=== PATIENT | male | born 1965 | race Caucasian/White ===

== ENCOUNTER 2017-11-05 21:04 | Inpatient (IN) | payer OTHER ==
--- NOTE | 2017-11-05 21:29 | ED ---
General Adult HPI - General Chief complaint: Chest Pain Stated complaint: chest pain Time Seen by Provider: 11/05/17 21:15 Source: patient, RN notes reviewed, old records reviewed Mode of arrival: ambulatory Limitations: no limitations - History of Present Illness Initial comments: 51-year-old male presents for evaluation of left-sided chest pain. Patient has had intermittent chest pain over the past 2 weeks. Describes it as left-sided burning in nature. Denies any exertional component to this chest pain. He does state that he has pain in his left arm as well as becomes diaphoretic with these episodes. They last approximately 15-20 minutes. He is having approximately one daily. No known history of CAD. He is a smoker. Not currently on any medications chronically. Patient has no pain at the time my evaluation. - Related Data Home Medications Medication Instructions Recorded Confirmed Aspirin 325 mg PO DAILY 11/05/17 11/05/17 Allergies Allergy/AdvReac Type Severity Reaction Status Date / Time No Known Allergies Allergy Verified 11/05/17 21:12 Review of Systems ROS Statement: Those systems with pertinent positive or pertinent negative responses have been documented in the HPI. ROS Other: All systems not noted in ROS Statement are negative. Past Medical History Past Medical History: No Reported History History of Any Multi-Drug Resistant Organisms: None Reported Past Surgical History: No Surgical Hx Reported Past Psychological History: No Psychological Hx Reported Smoking Status: Current every day smoker Past Alcohol Use History: Occasional Past Drug Use History: Marijuana General Exam Limitations: no limitations General appearance: alert Head exam: Present: atraumatic, normocephalic Eye exam: Present: normal appearance, PERRL ENT exam: Present: normal exam Neck exam: Present: normal inspection. Absent: tenderness, meningismus Respiratory exam: Present: normal lung sounds bilaterally. Absent: respiratory distress, wheezes Cardiovascular Exam: Present: regular rate, normal rhythm GI/Abdominal exam: Present: soft. Absent: distended, tenderness, guarding, rebound Extremities exam: Present: normal inspection, normal capillary refill. Absent: pedal edema Neurological exam: Present: alert, oriented X3, CN II-XII intact. Absent: motor sensory deficit Psychiatric exam: Present: normal affect, normal mood Skin exam: Present: warm, dry, intact. Absent: cyanosis, diaphoretic Course Vital Signs 11/05/17 11/05/17 11/05/17 21:09 21:29 22:22 Temperature 98.2 F Pulse Rate 93 86 Pulse Rate [ 91 Literacy Coordinator ] Respiratory 20 18 Rate Blood Pressure 196/106 175/89 O2 Sat by Pulse 99 97 Oximetry 11/05/17 23:16 Temperature Pulse Rate 81 Pulse Rate [ Literacy Coordinator ] Respiratory 18 Rate Blood Pressure 175/89 O2 Sat by Pulse 97 Oximetry - Reevaluation(s) Reevaluation #1: 11/05/17 23:37 Patient remains chest pain-free while in the emergency department. EKG Findings - EKG Comments: EKG Findings:: EKG: Normal sinus rhythm, rate of 96, CA interval 138, QRS duration 84, QTC 424, QT 336, there is biphasic T wave in V3, no ST segment elevation, T-wave inversion in lead 3 with Q-wave. Medical Decision Making - Medical Decision Making 51-year-old male with chief complaint of chest pain. History is concerning for unstable angina. EKG does show nonspecific changes concerning for ischemia. Chest x-ray negative for acute cardiopulmonary disease. Normal CBC, normal CMP , troponin is 0.017 which is indeterminate. D-dimer is positive and for this reason CT angiography is obtained which is negative for pulmonary embolism. There is some paratracheal lymphadenopathy. Given the patient's history he is started on heparin and aspirin. He will be admitted for serial cardiac enzymes and cardiology consultation. He will be admitted to telemetry. Diagnosis: unstable angina. - Lab Data Result diagrams: 11/05/17 21:37 11/05/17 21:37 Lab Results 11/05/17 11/05/17 11/05/17 Range/Units 21:37 21:37 21:37 WBC 7.8 (3.8-10.6) k/uL RBC 4.45 (4.30-5.90) m/uL Hgb 14.4 (13.0-17.5) gm/dL Hct 42.3 (39.0-53.0) % MCV 95.1 (80.0-100.0) fL MCH 32.4 (25.0-35.0) pg MCHC 34.0 (31.0-37.0) g/dL RDW 12.7 (11.5-15.5) % Plt Count 141 L (150-450) k/uL Neutrophils % 64 % Lymphocytes % 24 % Monocytes % 6 % Eosinophils % 4 % Basophils % 1 % Neutrophils # 4.9 (1.3-7.7) k/uL Lymphocytes # 1.8 (1.0-4.8) k/uL Monocytes # 0.4 (0-1.0) k/uL Eosinophils # 0.3 (0-0.7) k/uL Basophils # 0.1 (0-0.2) k/uL PT (9.0-12.0) sec INR (<1.2) APTT (22.0-30.0) sec D-Dimer (<0.60) mg/L FEU Sodium 139 (137-145) mmol/L Potassium 4.4 (3.5-5.1) mmol/L Chloride 109 H (98-107) mmol/L Carbon Dioxide 24 (22-30) mmol/L Anion Gap 6 mmol/L BUN 18 (9-20) mg/dL Creatinine 0.60 L (0.66-1.25) mg/dL Est GFR (CKD-EPI)AfAm >90 (>60 ml/min/1.73 sqM) Est GFR (CKD-EPI)NonAf >90 (>60 ml/min/1.73 sqM) Glucose 105 H (74-99) mg/dL Calcium 9.2 (8.4-10.2) mg/dL Magnesium 2.0 (1.6-2.3) mg/dL Total Bilirubin 0.2 (0.2-1.3) mg/dL AST 29 (17-59) U/L ALT 52 (21-72) U/L Alkaline Phosphatase 55 (38-126) U/L Total Creatine Kinase 238 H (55-170) U/L CK-MB (CK-2) 3.5 H* (0.0-2.4) ng/mL CK-MB (CK-2) Rel Index 1.5 Troponin I 0.017 (0.000-0.034) ng/mL NT-Pro-B Natriuret Pep pg/mL Total Protein 6.5 (6.3-8.2) g/dL Albumin 4.1 (3.5-5.0) g/dL Lipase 101 (23-300) U/L 11/05/17 11/05/17 Range/Units 21:37 21:37 WBC (3.8-10.6) k/uL RBC (4.30-5.90) m/uL Hgb (13.0-17.5) gm/dL Hct (39.0-53.0) % MCV (80.0-100.0) fL MCH (25.0-35.0) pg MCHC (31.0-37.0) g/dL RDW (11.5-15.5) % Plt Count (150-450) k/uL Neutrophils % % Lymphocytes % % Monocytes % % Eosinophils % % Basophils % % Neutrophils # (1.3-7.7) k/uL Lymphocytes # (1.0-4.8) k/uL Monocytes # (0-1.0) k/uL Eosinophils # (0-0.7) k/uL Basophils # (0-0.2) k/uL PT 9.4 (9.0-12.0) sec INR 0.9 (<1.2) APTT 28.2 (22.0-30.0) sec D-Dimer 0.66 H (<0.60) mg/L FEU Sodium (137-145) mmol/L Potassium (3.5-5.1) mmol/L Chloride (98-107) mmol/L Carbon Dioxide (22-30) mmol/L Anion Gap mmol/L BUN (9-20) mg/dL Creatinine (0.66-1.25) mg/dL Est GFR (CKD-EPI)AfAm (>60 ml/min/1.73 sqM) Est GFR (CKD-EPI)NonAf (>60 ml/min/1.73 sqM) Glucose (74-99) mg/dL Calcium (8.4-10.2) mg/dL Magnesium (1.6-2.3) mg/dL Total Bilirubin (0.2-1.3) mg/dL AST (17-59) U/L ALT (21-72) U/L Alkaline Phosphatase (38-126) U/L Total Creatine Kinase (55-170) U/L CK-MB (CK-2) (0.0-2.4) ng/mL CK-MB (CK-2) Rel Index Troponin I (0.000-0.034) ng/mL NT-Pro-B Natriuret Pep 153 pg/mL Total Protein (6.3-8.2) g/dL Albumin (3.5-5.0) g/dL Lipase (23-300) U/L Critical Care Time Critical Care Time: Yes Total Critical Care Time: 35 Disposition Clinical Impression: Unstable angina pectoris Disposition: ADMITTED IP TO THIS [facility] Condition: Stable Is patient prescribed a controlled substance at d/c from ED?: No Referrals: None,Stated [Primary Care Provider] - 1-2 days Decision to Admit Reason: Admit from EC Decision Date: 11/05/17 Decision Time: 23:40
--- NOTE | 2017-11-05 21:52 | XR ---
EXAMINATION TYPE: XR chest 2V DATE OF EXAM: 11/05/2017 COMPARISON: NONE HISTORY: Chest pain and dyspnea TECHNIQUE: Frontal and lateral views of the chest are obtained. FINDINGS: There is no focal air space opacity, pleural effusion, or pneumothorax seen. The cardiac silhouette size is within normal limits. The osseous structures are intact. IMPRESSION: No acute cardiopulmonary process.
[2017-11-05 21:53] LABS: Basophils # (A) 0.1 k/uL (0-0.2); Basophils % (A) 1 %; Eosinophils # (A) 0.3 k/uL (0-0.7); Eosinophils % (A) 4 %; HCT 42.3 % (39.0-53.0); HGB 14.4 gm/dL (13.0-17.5); Lymphocytes # (A) 1.8 k/uL (1.0-4.8); Lymphocytes % (A) 24 %; MCH 32.4 pg (25.0-35.0); MCV 95.1 fL (80.0-100.0); Mean Platelet Volume 7.6; Monocytes # (A) 0.4 k/uL (0-1.0); Monocytes % (A) 6 %; Neutrophils # (A) 4.9 k/uL (1.3-7.7); Neutrophils % (A) 64 %; Platelet Count 141 k/uL (150-450); RBC 4.45 m/uL (4.30-5.90); RDW 12.7 % (11.5-15.5); WBC 7.8 k/uL (3.8-10.6)
[2017-11-05 22:07] LABS: INR 0.9 (<1.2); Partial Thromboplastin Time 28.2 sec (22.0-30.0); Prothrombin Time 9.4 sec (9.0-12.0)
[2017-11-05 22:09] LABS: ALT 52 U/L (21-72); AST 29 U/L (17-59); Albumin 4.1 g/dL (3.5-5.0); Alkaline Phosphatase 55 U/L (38-126); Anion Gap 6 mmol/L; Blood Urea Nitrogen 18 mg/dL (9-20); Calcium 9.2 mg/dL (8.4-10.2); Carbon Dioxide 24 mmol/L (22-30); Chloride 109 mmol/L (98-107); Glucose 105 mg/dL (74-99); Lipase 101 U/L (23-300); Potassium 4.4 mmol/L (3.5-5.1); Sodium 139 mmol/L (137-145); Total Bilirubin 0.2 mg/dL (0.2-1.3); Total Protein 6.5 g/dL (6.3-8.2)
[2017-11-05 22:36] LABS: Troponin I 0.017 ng/mL (0.000-0.034)
[2017-11-05 22:40] LABS: D-Dimer 0.66 mg/L FEU (<0.60)
[2017-11-05 22:44] LABS: Creatine Kinase MB 3.5 ng/mL (0.0-2.4)
[2017-11-05] MEDS ORDERED: ASPIRIN 325 MG TAB PO STA (22:48)
--- NOTE | 2017-11-05 23:32 | CT ---
EXAMINATION TYPE: CT angio chest DATE OF EXAM: 11/05/2017 11:18 PM COMPARISON: None HISTORY: SOB CT DLP: 461 mGycm Automated exposure control for dose reduction was used. CONTRAST: CTA scan of the thorax is performed with IV Contrast, patient injected with 85 mL of Isovue 370, pulm onary embolism protocol. There are 3-D post processed images.. FINDINGS: There is minimal subsegmental atelectasis at the lung bases. There is no pleural effusion or pneumoth orax. The lungs are clear of consolidation. Thoracic aorta appears normal. There is no evidence of aneurysm or dissection. There is normal contra st opacification of the pulmonary arteries. There are no filling defects. There are a few mediastinal paratracheal lymph nodes. The largest measures 17 mm. There are no hilar masses. The bony thorax is intact. There is mild spurring in the thoracic spine. IMPRESSION: MILD SUBSEGMENTAL ATELECTASIS AT THE LUNG BASES. NO EVIDENCE OF PULMONARY EMBOLISM. NONSPECIFIC MEDIA STINAL ParaTRACHEAL LYMPH NODE.
[2017-11-05] MEDS ORDERED: NALOXONE 0.4 MG/ML 1 ML VIAL IV PRN (23:35)
[2017-11-05] MEDS ORDERED: MORPHINE SULFATE 4 MG/ML SYRINGE IV PRN (23:35)
[2017-11-05] MEDS ORDERED: HEPARIN SODIUM,PORCINE 5,000 UNIT/ML 1 ML VIAL IV PRN (23:35)
[2017-11-05] MEDS ORDERED: HEPARIN SODIUM,PORCINE 5,000 UNIT/ML 1 ML VIAL IV ONE (23:35)
[2017-11-05] MEDS ORDERED: METOPROLOL TARTRATE 25 MG TAB PO STA (23:37)
[2017-11-05] MEDS: HEPARIN SOD,PORK IN 0.45% NACL 25,000 UNIT in 0.45% NACL 1 500ML.BAG IV SCH (23:54)
[2017-11-05] MEDS: SODIUM CHLORIDE 0.9% 1,000 ML IV SCH (23:55)
[2017-11-06 05:09] LABS: Troponin I 0.031 ng/mL (0.000-0.034)
[2017-11-06 05:34] LABS: Creatine Kinase MB 3.1 ng/mL (0.0-2.4)
[2017-11-06 06:21] LABS: Basophils # (A) 0.1 k/uL (0-0.2); Basophils % (A) 1 %; Eosinophils # (A) 0.3 k/uL (0-0.7); Eosinophils % (A) 5 %; HCT 40.7 % (39.0-53.0); HGB 13.4 gm/dL (13.0-17.5); Lymphocytes % (A) 31 %; MCH 31.6 pg (25.0-35.0); MCV 95.8 fL (80.0-100.0); Mean Platelet Volume 7.6; Monocytes # (A) 0.4 k/uL (0-1.0); Monocytes % (A) 6 %; Neutrophils # (A) 3.6 k/uL (1.3-7.7); Neutrophils % (A) 56 %; Platelet Count 127 k/uL (150-450); RBC 4.25 m/uL (4.30-5.90); RDW 12.7 % (11.5-15.5); WBC 6.4 k/uL (3.8-10.6)
[2017-11-06] MEDS: ASPIRIN 325 MG TAB PO SCH (08:12)
--- NOTE | 2017-11-06 08:56 | P.CRDCN ---
History of Present Illness Consult date: 11/06/17 Requesting physician: Rob Amador Consult reason: chest pain Chief complaint: Chest pain History of present illness: This is a pleasant 51-year-old gentleman with no prior documented history of hypertension, no diabetes, no hyperlipidemia, he does smoke a pack of cigarettes per day, and drinks beer a few times a week, 10 or more at a time. No family history of premature coronary artery disease. He does not follow regularly with the physician. He presents to the hospital on this occasion with symptoms of chest discomfort. According to the patient for the past 2 weeks she's been experiencing symptoms which originally started in his upper abdominal area he described it as a heavy feeling, burning sensation almost like heartburn. Over the past couple of days, the symptoms have been more so in the upper chest region, described as a burning sensation with pressure and heaviness, he becomes very diaphoretic. He also feels discomfort in his left shoulder and arm area when this occurs. Symptoms occur with or without rest, most of the time she states it seems to be when he is in bed. His EKG on arrival here shows a normal sinus rhythm with nonspecific ST-T wave changes noted. No morning EKG performed. Chest x-ray did not reveal any acute cardiopulmonary process. CTA of the chest revealed mild subsegmental atelectasis at the lung bases, no evidence of pulmonary embolism, nonspecific mediastinal peritracheal lymph node noted. Blood pressure on arrival to the emergency room 196/106 with a heart rate in the 90s, 99% on room air. Blood pressure this morning 180/90 with a heart rate in the 70s, 98% on room air. White blood cell count 6.4, hemoglobin 13.4, platelet count 127. D-dimer 0.6. Sodium 139, potassium 4.4, BUN 18, creatinine 0.6, magnesium 2.1. CK 238 and 176, MB 3.5 and 3.1, troponin 0.017, 0.031. BNP normal. The time of my examination this morning patient is currently chest pain-free. He is currently on IV heparin along with aspirin, he received a one-time dose of Lopressor in the emergency room. Past Medical History Past Medical History: No Reported History History of Any Multi-Drug Resistant Organisms: None Reported Past Surgical History: No Surgical Hx Reported Past Anesthesia/Blood Transfusion Reactions: No Reported Reaction Past Psychological History: No Psychological Hx Reported Smoking Status: Current every day smoker Past Alcohol Use History: Occasional Past Drug Use History: Marijuana - Past Family History Father Family Medical History: Congestive Heart Failure (CHF), CVA/TIA, Myocardial Infarction (CO), Vascular Disorder Mother Family Medical History: Diabetes Mellitus Medications and Allergies Home Medications Medication Instructions Recorded Confirmed Type Aspirin 325 mg PO DAILY 11/05/17 11/05/17 History Allergies Allergy/AdvReac Type Severity Reaction Status Date / Time No Known Allergies Allergy Verified 11/05/17 21:12 Physical Exam Vitals: Vital Signs Temp Pulse Pulse Resp BP BP Pulse Ox 11/06/17 08:00 97.6 F 75 16 180/94 98 11/06/17 04:00 97.5 F L 67 15 167/100 96 11/06/17 00:41 97.6 F 74 15 180/103 97 11/06/17 00:28 97.8 F 74 18 184/99 99 11/05/17 23:16 81 18 175/89 97 11/05/17 22:22 86 18 175/89 97 11/05/17 21:29 91 11/05/17 21:09 98.2 F 93 20 196/106 99 Intake and Output 11/05/17 11/06/17 11/06/17 22:59 06:59 14:59 Intake Total 120 144.667 Balance 120 144.667 Intake: Intake, IV Titration 120 144.667 Amount Heparin Sod,Pork in 0.45% 144.667 NaCl 25,000 unit In 0.45 % NaCl 1 500ml.bag @ 20 mls/hr IV .Q24H [facility] Rx#: [id number] Sodium Chloride 0.9% 1, 120 000 ml @ 20 mls/hr IV . Q24H [facility] Rx#:[id number] Other: Voiding Method Toilet Weight 97.522 kg 101.2 kg PHYSICAL EXAMINATION: GENERAL: 51-year-old gentleman in no acute distress at the time of my examination HEENT: Head is atraumatic, normocephalic. Pupils equal, round. Sclera anicteric. Conjunctiva are clear. Mucous membranes of the mouth are moist. Neck is supple. There is no elevated jugular venous pressure. No carotid bruit is heard. HEART EXAMINATION: Heart S1, S2 normal. No murmur or gallop heard. CHEST EXAMINATION: Lungs are clear to auscultation and precussion. No chest wall tenderness is noted on palpation or with deep breathing. ABDOMEN: Soft, nontender. Bowel sounds are heard. No organomegaly noted. EXTREMITIES: 2+ peripheral pulses with no evidence of peripheral edema and no calf tenderness noted. NEUROLOGIC patient is awake, alert and oriented X3. . Results 11/06/17 05:47 11/05/17 21:37 Cardiac Enzymes 11/05/17 11/05/17 11/06/17 Range/Units 21:37 21:37 04:05 AST 29 (17-59) U/L CK-MB (CK-2) 3.5 H* 3.1 H* (0.0-2.4) ng/mL Troponin I 0.017 0.031 (0.000-0.034) ng/mL Coagulation 11/05/17 11/06/17 Range/Units 21:37 05:47 PT 9.4 (9.0-12.0) sec APTT 28.2 31.5 H (22.0-30.0) sec CBC 11/05/17 11/06/17 Range/Units 21:37 05:47 WBC 7.8 6.4 (3.8-10.6) k/uL RBC 4.45 4.25 L (4.30-5.90) m/uL Hgb 14.4 13.4 (13.0-17.5) gm/dL Hct 42.3 40.7 (39.0-53.0) % Plt Count 141 L 127 L (150-450) k/uL Comprehensive Metabolic Panel 11/05/17 Range/Units 21:37 Sodium 139 (137-145) mmol/L Potassium 4.4 (3.5-5.1) mmol/L Chloride 109 H (98-107) mmol/L Carbon Dioxide 24 (22-30) mmol/L BUN 18 (9-20) mg/dL Creatinine 0.60 L (0.66-1.25) mg/dL Glucose 105 H (74-99) mg/dL Calcium 9.2 (8.4-10.2) mg/dL AST 29 (17-59) U/L ALT 52 (21-72) U/L Alkaline Phosphatase 55 (38-126) U/L Total Protein 6.5 (6.3-8.2) g/dL Albumin 4.1 (3.5-5.0) g/dL Current Medications Generic Name Dose Route Start Last Admin Trade Name Nitin PRN Reason Stop Dose Admin Aspirin 325 mg 11/06/17 09:00 11/06/17 08:12 Aspirin PO 325 mg DAILY [facility] Administration Heparin Sodium (Porcine) 0 unit 11/05/17 23:35 Heparin IV PER PROTOCOL PRN Low PTT Protocol Heparin Sodium/Sodium Chloride 500 mls @ 20 mls/hr 11/05/17 23:45 11/06/17 07 :08 25,000 unit/ Sodium Chloride IV 23 mls/hr .Q24H [facility] 23 mls/hr Titration Protocol Sodium Chloride 1,000 mls @ 20 mls/hr 11/05/17 23:45 11/05/17 23:55 Saline 0.9% IV 20 mls/hr .Q24H [facility] Administration Morphine Sulfate 4 mg 11/05/17 23:35 Morphine Sulfate (Inj) IV Q4HR PRN Severe Pain Naloxone HCl 0.2 mg 11/05/17 23:35 Narcan IV Q2M PRN Opioid Reversal Intake and Output 11/05/17 11/06/17 11/06/17 22:59 06:59 14:59 Intake Total 120 144.667 Balance 120 144.667 Intake: Intake, IV Titration 120 144.667 Amount Heparin Sod,Pork in 0.45% 144.667 NaCl 25,000 unit In 0.45 % NaCl 1 500ml.bag @ 20 mls/hr IV .Q24H [facility] Rx#: [id number] Sodium Chloride 0.9% 1, 120 000 ml @ 20 mls/hr IV . Q24H [facility] Rx#:[id number] Other: Voiding Method Toilet Weight 97.522 kg 101.2 kg 11/06/17 05:47 11/05/17 21:37 EKG Interpretations (text) EKG shows a normal sinus rhythm with nonspecific ST-T wave changes Assessment and Plan Plan: Assessment and plan #1 symptoms of chest pressure and heaviness with associated burning sensation, radiation to the left arm, associated diaphoresis. Initially presenting as epigastric discomfort. EKG shows a normal sinus rhythm with nonspecific ST-T wave changes. CT of the chest negative for pulmonary embolism. Troponin 0.017 , 0.031. #2 accelerated hypertension #3 nicotine dependence #4 EtOH use Plan We will obtain an echocardiogram with Doppler study as well as third troponin and repeat EKG this morning. Start the patient on beta eunice as well as angiotensin eunice for blood pressure control. Check fasting lipid profile. Patient's symptoms could be secondary to accelerated hypertension, cannot completely rule out underlying coronary artery disease. Further recommendations to follow. DNP note has been reviewed, I agree with a documented findings and plan of care. Patient was seen and examined.
[2017-11-06 09:36] LABS: Cholesterol 153 mg/dL (<200); HDL Cholesterol 44 mg/dL (40-60); LDL Cholesterol,Calculated 61 mg/dL (0-99); Triglycerides 239 mg/dL (<150)
[2017-11-06 10:26] LABS: Troponin I 0.026 ng/mL (0.000-0.034)
[2017-11-06] MEDS: LOSARTAN 25 MG TAB PO SCH (11:38)
[2017-11-06] MEDS: ATORVASTATIN 40 MG TAB PO SCH (11:38)
[2017-11-06] MEDS: METOPROLOL TARTRATE 25 MG TAB PO SCH ×2 (11:39→21:33)
--- NOTE | 2017-11-06 12:38 | ECHOF ---
Referral Reason:chest pain MEASUREMENTS -------- HEIGHT: 177.8 cm WEIGHT: 101.2 kg BP: 180/94 IVSd: 1.3 cm (0.6 - 1.1) LVIDd: 4.8 cm (3.9 - 5.3) LVPWd: 1.2 cm (0.6 - 1.1) IVSs: 1.4 cm LVIDs: 3.3 cm LVPWs: 1.4 cm LAESV Index (A-L): 24.41 ml/m Ao Diam: 3.1 cm (2.0 - 3.7) AV Cusp: 2.1 cm (1.5 - 2.6) LA Diam: 3.2 cm (2.7 - 3.8) EPSS: 1.2 cm MV E Robbi: 0.60 m/s MV DecT: 289 ms MV A Robbi: 0.83 m/s MV E/A Ratio: 0.72 RAP: 5.00 mmHg RVSP: 8.81 mmHg MV EF SLOPE: 78.78 mm/s (70 - 150) MV EXCURSION: 1.64 cm (> 18.000) FINDINGS -------- Sinus rhythm. This was a technically adequate study. The left ventricular size is normal. There is mild concentric left ventricular hypertrophy. Overa ll left ventricular systolic function is normal with, an EF between 55 - 60 %. The right ventricle is normal in size and function. Normal LA size by volume 22+/-6 ml/m2. The right atrium is normal in size. The aortic valve is trileaflet, and appears structurally normal. No aortic stenosis or regurgitation. The mitral valve is normal. Mild mitral regurgitation is present. Mild tricuspid regurgitation present. Right ventricular systolic pressure is normal at < 35 mmHg. The right ventricular systolic pressure, as measured by Doppler, is 8.81mmHg. The pulmonic valve was not well visualized. There is no pulmonic regurgitation present. The aortic root size is normal. Normal inferior vena cava with normal inspiratory collapse consistent with estimated right atrial pre ssure of 5 mmHg. There is no pericardial effusion. CONCLUSIONS -------- 1. Sinus rhythm. 2. This was a technically adequate study. 3. The left ventricular size is normal. 4. There is mild concentric left ventricular hypertrophy. 5. Overall left ventricular systolic function is normal with, an EF between 55 - 60 %. 6. Normal LA size by volume 22+/-6 ml/m2. 7. The aortic valve is trileaflet, and appears structurally normal. No aortic stenosis or regurgitati on. 8. Mild mitral regurgitation is present. 9. Mild tricuspid regurgitation present. 10. Right ventricular systolic pressure is normal at < 35 mmHg. 11. The pulmonic valve was not well visualized. 12. There is no pulmonic regurgitation present. 13. The aortic root size is normal. 14. There is no pericardial effusion. SURVIVAL SPECIALIST: Tomi Cosby RDCS
--- NOTE | 2017-11-06 17:25 | P.CONS ---
History of Present Illness - Reason for Consult Consult date: 11/06/17 Blood per rectum Requesting physician: Rob Amador - Chief Complaint Chest pain - History of Present Illness The patient is a 51-year-old male with a past medical history significant for tobacco abuse who presented to the hospital with complaints of chest discomfort. The patient reports pain in his abdomen and chest described as a heavy sensation with associated burning. Prior to presentation he symptoms localized more to the chest with associated diaphoresis and pain in the patient' s left shoulder. The patient was found to have mildly elevated troponins on presentation and was started on a heparin drip with cardiology currently working the patient up. The patient reports one episode of bright red blood per rectum. The patient reports noting blood in the toilet and with wiping on the toilet paper. He denies any prior episodes he reports no further bowel movements and had no associated nausea or vomiting, melena or hematemesis. The patient does have a significant history of alcohol use reporting drinking 10 beers approximately 3 times per week. He has not had any prior endoscopic evaluation. The patient's hemoglobin has remained stable at 13.4 from 14.4 on admission. Past endoscopic history: Denies any prior EGD or colonoscopy Family history: Significant for congestive heart failure and myocardial infarction in the patient's father and diabetes mellitus and the patient's mother. Social history: Patient is a current every day smoker. He reports alcohol use with 10 beers approximately 3 times per week. He also uses marijuana occasionally. Review of Systems REVIEW OF SYSTEMS: CARDIOPULMONARY: Reports chest pain described as burning and pressure-like in sensation, currently improved. Patient had associated diaphoresis GENITOURINARY: No dysuria or hematuria. MUSCULOSKELETAL: No weakness reported. SKIN: Denies any new rashes or lesions, jaundice or pallor. PSYCHIATRIC: Denies any depression or anxiety. NEUROLOGY: Denies headache, denies any new focal deficits. EARS: No tinnitus, discharge or new hearing loss. NOSE: No discharge or congestion. EYES: No pain in eyes or change in vision. CONSTITUTIONAL: No recent weight loss. No fever, chills, night sweats. Past Medical History Past Medical History: No Reported History History of Any Multi-Drug Resistant Organisms: None Reported Past Surgical History: No Surgical Hx Reported Past Anesthesia/Blood Transfusion Reactions: No Reported Reaction Past Psychological History: No Psychological Hx Reported Smoking Status: Current every day smoker Past Alcohol Use History: Occasional Past Drug Use History: Marijuana - Past Family History Father Family Medical History: Congestive Heart Failure (CHF), CVA/TIA, Myocardial Infarction ([place]), Vascular Disorder Mother Family Medical History: Diabetes Mellitus Medications and Allergies Home Medications Medication Instructions Recorded Confirmed Type Aspirin 325 mg PO DAILY PRN 11/05/17 11/06/17 History Allergies Allergy/AdvReac Type Severity Reaction Status Date / Time No Known Allergies Allergy Verified 11/06/17 09:23 Physical Exam Vitals: Vital Signs Temp Pulse Pulse Resp BP BP Pulse Ox 11/06/17 15:17 74 11/06/17 15:01 74 16 167/92 97 11/06/17 11:32 97.3 F L 65 16 185/91 97 11/06/17 08:00 97.6 F 75 16 180/94 98 11/06/17 04:00 97.5 F L 67 15 167/100 96 11/06/17 00:41 97.6 F 74 15 180/103 97 11/06/17 00:28 97.8 F 74 18 184/99 99 11/05/17 23:16 81 18 175/89 97 11/05/17 22:22 86 18 175/89 97 11/05/17 21:29 91 11/05/17 21:09 98.2 F 93 20 196/106 99 Intake and Output 11/06/17 11/06/17 11/06/17 06:59 14:59 22:59 Intake Total 120 144.667 360 Balance 120 144.667 360 Intake: Intake, IV Titration 120 144.667 360 Amount Heparin Sod,Pork in 0.45% 144.667 NaCl 25,000 unit In 0.45 % NaCl 1 500ml.bag @ 20 mls/hr IV .Q24H [facility] Rx#: [id number] Sodium Chloride 0.9% 1, 120 360 000 ml @ 20 mls/hr IV . Q24H [facility] Rx#:[id number] Other: Voiding Method Toilet # Voids 1 Weight 101.2 kg On physical examination, patient appears comfortable in no apparent distress. HEAD: Normocephalic, atraumatic. EYES: No scleral icterus. No conjunctival injection. MOUTH: No lesions, tongue midline. NECK: Trachea midline, no gross abnormalities. CHEST: Decreased air entry in all lung zamora with no wheezing or rhonchi appreciated. HEART: Regular rate and rhythm. ABDOMEN: Soft, obese. Bowel sounds are positive. No organomegaly. No guarding or rigidity. EXTREMITIES: No pedal edema. SKIN: No rashes, no jaundice. NEUROLOGIC: Alert and oriented x3. No focal deficits. Results CBC & Chem 7: 11/06/17 05:47 11/05/17 21:37 Labs: Abnormal Lab Results - Last 24 Hours (Table) 11/05/17 11/05/17 11/05/17 Range/Units 21:37 21:37 21:37 RBC (4.30-5.90) m/uL Plt Count 141 L (150-450) k/uL APTT (22.0-30.0) sec D-Dimer (<0.60) mg/L FEU Chloride 109 H (98-107) mmol/L Creatinine 0.60 L (0.66-1.25) mg/dL Glucose 105 H (74-99) mg/dL Total Creatine Kinase 238 H (55-170) U/L CK-MB (CK-2) 3.5 H* (0.0-2.4) ng/mL Triglycerides (<150) mg/dL 11/05/17 11/06/17 11/06/17 Range/Units 21:37 04:05 05:47 RBC (4.30-5.90) m/uL Plt Count (150-450) k/uL APTT 31.5 H (22.0-30.0) sec D-Dimer 0.66 H (<0.60) mg/L FEU Chloride (98-107) mmol/L Creatinine (0.66-1.25) mg/dL Glucose (74-99) mg/dL Total Creatine Kinase 176 H (55-170) U/L CK-MB (CK-2) 3.1 H* (0.0-2.4) ng/mL Triglycerides (<150) mg/dL 11/06/17 11/06/17 11/06/17 Range/Units 05:47 05:47 09:26 RBC 4.25 L (4.30-5.90) m/uL Plt Count 127 L (150-450) k/uL APTT (22.0-30.0) sec D-Dimer (<0.60) mg/L FEU Chloride (98-107) mmol/L Creatinine (0.66-1.25) mg/dL Glucose (74-99) mg/dL Total Creatine Kinase (55-170) U/L CK-MB (CK-2) 3.0 H* (0.0-2.4) ng/mL Triglycerides 239 H (<150) mg/dL 11/06/17 Range/Units 13:06 RBC (4.30-5.90) m/uL Plt Count (150-450) k/uL APTT 32.7 H (22.0-30.0) sec D-Dimer (<0.60) mg/L FEU Chloride (98-107) mmol/L Creatinine (0.66-1.25) mg/dL Glucose (74-99) mg/dL Total Creatine Kinase (55-170) U/L CK-MB (CK-2) (0.0-2.4) ng/mL Triglycerides (<150) mg/dL CT scan - chest: report reviewed (No evidence of pulmonary embolism) Assessment and Plan (1) Bright red blood per rectum Narrative/Plan: 1 episode of bright red blood per rectum with stable hemoglobin of 13.4 from 14.4 on admission. The patient has not had endoscopic evaluation the past. Symptoms are suggestive of hemorrhoidal disease, however cannot rule out other pathology such as polyp bleeding, diverticular bleed, or malignancy without further evaluation. However at this time the patient is not interested in colonoscopy. Current Visit: Yes Status: Acute Code(s): K62.5 - HEMORRHAGE OF ANUS AND RECTUM SNOMED Code(s): 009115175 (2) Alcohol consumption binge drinking Narrative/Plan: Reports drinking 10 beers approximately 3 times per week. Risks of binge drinking discussed with the patient. Current Visit: Yes Status: Acute Code(s): F10.10 - ALCOHOL ABUSE, UNCOMPLICATED SNOMED Code(s): 689369617 Plan: Supportive care Continue cardiac evaluation Continue to monitor hemoglobin and transfuse as needed Continue to monitor stool output Patient will be due for a screening colonoscopy in December. Given his complaints of bright red blood per rectum this was offered the patient, however at this time he is refusing and would like to proceed with the cardiac evaluation We'll start Protonix empirically Thank you for allowing us to participate in the care of this patient we will continue to follow
[2017-11-06] MEDS: PANTOPRAZOLE 40 MG TABLET PO SCH (17:53)
--- NOTE | 2017-11-06 20:42 | HP ---
HISTORY AND PHYSICAL DATE OF ADMISSION: 11/05/2017 DATE OF SERVICE: 11/06/2017 PRESENTING COMPLAINT: Chest pain. HISTORY OF PRESENTING COMPLAINT: This is a 51-year-old patient with no family doctor. Patient presented with 2 weeks of pain described as a burning sensation in the left anterior chest wall coming on with exertion; feels better at rest. The pain sometimes radiates down the left arm and is associated with shortness of breath, perspiration. No dizziness. No lightheadedness. Patient was therefore admitted with a diagnosis of unstable angina and put on IV heparin. Earlier today patient did have one bleeding episode, bleeding per rectum that was found on wiping with the toilet paper. No abdominal pain. Patient was seen earlier by GI, Dr. Chavez. Patient at this point declined colonoscopy. The patient is also a smoker. REVIEW OF SYSTEMS: CONSTITUTIONAL: Tired. HEENT: None. RESPIRATORY: Occasional wheezing. CARDIOVASCULAR: As above. GASTROINTESTINAL: As above. No abdominal pain. GENITOURINARY: None. MUSCULOSKELETAL: None. DERMATOLOGICAL: None. HEMATOLOGICAL: None. LYMPHATICS: None. PSYCHIATRY: None. NEUROLOGICAL: None. PAST MEDICAL HISTORY: None. PAST SURGICAL HISTORY: None. SOCIAL HISTORY: Patient has smoked about a pack a day for close to 28 years. Drinks about 10 beers about 3 times a week, marijuana about twice a week. . Works as a cook in [employer] FAMILY HISTORY: Congestive heart failure, stroke, myocardial infarction. HOME MEDICATIONS: Aspirin occasionally. ALLERGIES: NONE. PHYSICAL EXAMINATION: VITAL SIGNS ON PRESENTATION: Temperature 98.2, pulse 93, respiration 20, blood pressure 196/106, pulse ox 99% on room air. Repeat blood pressure today down to 167/92. GENERAL APPEARANCE: Well built; BMI 32. Lying in bed, tired-appearing. EYES: Pupils equal. Conjunctivae normal. HEENT: External appearance of nose and ears normal. Oral cavity normal. NECK: JVD not raised. Mass not palpable. RESPIRATORY: Effort normal. LUNGS: Slightly decreased breath sounds. CARDIOVASCULAR: First and second sounds normal. No edema. ABDOMEN: Soft, non-tender. Liver and spleen not palpable. LYMPHATIC: No lymph node palpable in neck or axillae. PSYCHIATRY: Alert and oriented x3. Mood and affect normal. NEUROLOGICAL: Pupils equal. Cranial nerves grossly intact. Power and sensation grossly intact. INVESTIGATIONS: White count 7.8, hemoglobin 14.4. Platelets 141, repeat 127. Potassium 4.6, BUN 18, creatinine 0.60, troponin 0.017, 0.031, 0.026. LDL 61. EKG shows flipped T-waves in the anterior leads and also ST-segment depression from V1 to V5; also some in the lateral leads. Two-dimensional echo does not show any wall motion abnormality. ASSESSMENT: 1. Unstable angina in a patient whose risk factors include smoking and obesity. Patient has a minimal bump of troponin and has EKG changes suggestive of cardiac ischemia, for which patient has been started on IV heparin. 2. Intravenous heparin monitoring. 3. Acute lower gastrointestinal bleed; could be hemorrhoidal. 4. Obesity; body mass index 32.9. 5. Chronic alcohol dependence. 6. Chronic nicotine dependence. Patient is a cigarette smoker. 7. Accelerated hypertension. PLAN: Patient remains on IV heparin, aspirin; also started on Lipitor, Lopressor and Cozaar. Patient will need at least a stress test if not a cardiac catheterization. Patient will also be given a nicotine patch. The patient was also seen by Dr. Chavez from GI. The patient will be established with a family doctor upon discharge. MMODL / IJN: [id number] /
[2017-11-06] MEDS: NICOTINE 21MG/24HR PATCH TRANSDERM SCH (21:35)
[2017-11-07] MEDS: HEPARIN SOD,PORK IN 0.45% NACL 25,000 UNIT in 0.45% NACL 1 500ML.BAG IV SCH ×2 (02:13→04:10)
[2017-11-07] MEDS: SODIUM CHLORIDE 0.9% 1,000 ML IV SCH ×2 (02:13→04:10)
[2017-11-07 06:35] LABS: Basophils # (A) 0.1 k/uL (0-0.2); Basophils % (A) 1 %; Eosinophils # (A) 0.3 k/uL (0-0.7); Eosinophils % (A) 5 %; HCT 41.8 % (39.0-53.0); HGB 13.8 gm/dL (13.0-17.5); Lymphocytes % (A) 34 %; MCH 31.9 pg (25.0-35.0); MCHC 33.2 g/dL (31.0-37.0); MCV 96.1 fL (80.0-100.0); Mean Platelet Volume 7.6; Monocytes # (A) 0.4 k/uL (0-1.0); Monocytes % (A) 6 %; Neutrophils % (A) 52 %; Platelet Count 145 k/uL (150-450); RBC 4.35 m/uL (4.30-5.90); RDW 12.6 % (11.5-15.5); WBC 5.8 k/uL (3.8-10.6)
[2017-11-07] MEDS: PANTOPRAZOLE 40 MG TABLET PO SCH (07:12)
[2017-11-07] MEDS: NICOTINE 21MG/24HR PATCH TRANSDERM SCH (07:58)
[2017-11-07] MEDS: ASPIRIN 325 MG TAB PO SCH (07:59)
[2017-11-07] MEDS: METOPROLOL TARTRATE 25 MG TAB PO SCH ×2 (07:59→21:32)
[2017-11-07] MEDS: ATORVASTATIN 40 MG TAB PO SCH (07:59)
[2017-11-07] MEDS: LOSARTAN 25 MG TAB PO SCH (07:59)
[2017-11-07] MEDS ORDERED: AMINOPHYLLINE 500 MG/20 ML VIAL IV PRN (09:54)
[2017-11-07] MEDS ORDERED: REGADENOSON 0.4 MG/5 ML SYRINGE IV ONE (09:54)
--- NOTE | 2017-11-07 12:44 | P.PN ---
Subjective Progress Note Date: 11/07/17 This is a pleasant 51-year-old gentleman with no prior documented history of hypertension, no diabetes, no hyperlipidemia, he does smoke a pack of cigarettes per day, and drinks beer a few times a week, 10 or more at a time. No family history of premature coronary artery disease. He does not follow regularly with the physician. He presents to the hospital on this occasion with symptoms of chest discomfort. According to the patient for the past 2 weeks she's been experiencing symptoms which originally started in his upper abdominal area he described it as a heavy feeling, burning sensation almost like heartburn. Over the past couple of days, the symptoms have been more so in the upper chest region, described as a burning sensation with pressure and heaviness, he becomes very diaphoretic. He also feels discomfort in his left shoulder and arm area when this occurs. Symptoms occur with or without rest, most of the time she states it seems to be when he is in bed. His EKG on arrival here shows a normal sinus rhythm with nonspecific ST-T wave changes noted. No morning EKG performed. Chest x-ray did not reveal any acute cardiopulmonary process. CTA of the chest revealed mild subsegmental atelectasis at the lung bases, no evidence of pulmonary embolism, nonspecific mediastinal peritracheal lymph node noted. Blood pressure on arrival to the emergency room 196/106 with a heart rate in the 90s, 99% on room air. Blood pressure this morning 180/90 with a heart rate in the 70s, 98% on room air. White blood cell count 6.4, hemoglobin 13.4, platelet count 127. D-dimer 0.6. Sodium 139, potassium 4.4, BUN 18, creatinine 0.6, magnesium 2.1. CK 238 and 176, MB 3.5 and 3.1, troponin 0.017, 0.031. BNP normal. The time of my examination this morning patient is currently chest pain-free. He is currently on IV heparin along with aspirin, he received a one-time dose of Lopressor in the emergency room. 11/07/2017 Patient seen and examined this morning, denies any chest pain at present. He was seen by GI service who felt that the bright red bleeding he had yesterday was secondary to hemorrhoids. As an outpatient able to perform a screening colonoscopy in December. He has had no further episodes of bright red bleeding. Was recommended by Dr. Rebolledo to undergo a stress echocardiographic study today. He had an echocardiogram with Doppler study performed which revealed a normal left ventricular systolic function. Blood pressure 138/80 with a heart rate in the 70s, 97% on room air. White blood cell count 5.8, hemoglobin 13.8, platelet count 145. Objective - Vital Signs Vital signs: Vital Signs Temp 97.4 F L 11/07/17 11:31 Pulse 79 11/07/17 11:42 Resp 16 11/07/17 11:31 BP 138/80 11/07/17 11:31 Pulse Ox 97 11/07/17 11:31 Intake & Output 11/06/17 11/07/17 11/07/17 18:59 06:59 18:59 Intake Total 740.667 515.333 147.36 Balance 740.667 515.333 147.36 Weight 100 kg Intake: Intake, IV Titration 504.667 515.333 147.36 Amount Heparin Sod,Pork in 0.45% 144.667 355.333 87.36 NaCl 25,000 unit In 0.45 % NaCl 1 500ml.bag @ 20 mls/hr IV .Q24H [facility] Rx#: [id number] Sodium Chloride 0.9% 1, 360 160 60 000 ml @ 20 mls/hr IV . Q24H [facility] Rx#:[id number] Oral 236 Other: Voiding Method Toilet # Voids 1 2 - Exam PHYSICAL EXAMINATION: GENERAL: 51-year-old gentleman in no acute distress at the time of my examination HEENT: Head is atraumatic, normocephalic. Pupils equal, round. Sclera anicteric. Conjunctiva are clear. Mucous membranes of the mouth are moist. Neck is supple. There is no elevated jugular venous pressure. No carotid bruit is heard. HEART EXAMINATION: Heart S1, S2 normal. No murmur or gallop heard. CHEST EXAMINATION: Lungs are clear to auscultation and precussion. No chest wall tenderness is noted on palpation or with deep breathing. ABDOMEN: Soft, nontender. Bowel sounds are heard. No organomegaly noted. EXTREMITIES: 2+ peripheral pulses with no evidence of peripheral edema and no calf tenderness noted. NEUROLOGIC patient is awake, alert and oriented X3. . - Labs CBC & Chem 7: 11/07/17 05:47 11/05/17 21:37 Labs: Abnormal Lab Results - Last 24 Hours (Table) 11/06/17 11/06/17 11/07/17 Range/Units 13:06 20:25 05:47 Plt Count 145 L (150-450) k/uL APTT 32.7 H 53.1 H (22.0-30.0) sec 11/07/17 Range/Units 05:47 Plt Count (150-450) k/uL APTT 39.6 H (22.0-30.0) sec Assessment and Plan Plan: Assessment and plan #1 symptoms of chest pressure and heaviness with associated burning sensation, radiation to the left arm, associated diaphoresis. Initially presenting as epigastric discomfort. EKG shows a normal sinus rhythm with nonspecific ST-T wave changes. CT of the chest negative for pulmonary embolism. Troponin 0.017 , 0.031, 0.026. #2 accelerated hypertension #3 nicotine dependence #4 EtOH use Plan Echocardiogram with Doppler study was performed which revealed a normal left ventricular systolic function. Patient has had no further episodes of bleeding per rectum. Hemoglobin 13.8. Patient is scheduled today to undergo stress echocardiographic study, if the test is positive patient will be recommended to undergo cardiac catheterization, if the stress test is negative further recommendations then will be made. DNP note has been reviewed, I agree with a documented findings and plan of care. Patient was seen and examined.
--- NOTE | 2017-11-07 13:26 | ECHOS ---
STRESS ECHOCARDIOGRAM DATE OF SERVICE: 11/07/2017 INDICATIONS: Chest pain. MEDICATIONS: Aspirin. BASELINE HEART RATE: 70 BASELINE BLOOD PRESSURE: 155/74 MAXIMUM HEART RATE: 145 MAXIMUM BLOOD PRESSURE: 212/106 85% MPHR: 145 100% MPHR: 171 METS: 7.1 MAXIMUM STAGE REACHED: II TOTAL EXERCISE TIME: 6 minutes 27 seconds CLINICAL INFORMATION: Baseline rhythm sinus mechanism, normal axis and intervals, normal electrocardiogram. Baseline blood pressure 155/74 mmHg. Patient exercised on Deo protocol for 6 minutes 27 seconds reaching a peak rate 145 beats per minute which is 87% maximum predicted heart rate. Peak blood pressure 212/106 mmHg, Test was terminated secondary to fatigue. Electrocardiograph monitoring revealed an occasional PVCs. There was [address]- segment depression in inferolateral leads that resolved gradually in recovery. Baseline echocardiogram revealed normal wall motion. At peak exercise, there was hypokinesis of the mid anteroapical and anteroseptal wall as well as the anterolateral wall with evidence of normalization on the recovery images. CONCLUSION: 1. Average exercise tolerance with positive electrocardiograph stress testing. 2. Abnormal stress echocardiogram with evidence of inducible ischemia involving the mid anteroapical, anteroseptal and anterolateral wall consistent with stress- induced ischemia in the LAD territory. MMODL / IJN: [id number] /
[2017-11-07] MEDS ORDERED: ALPRAZolam 0.5 MG TAB PO PRN (14:18)
[2017-11-07] MEDS ORDERED: ATORVASTATIN 80 MG TAB PO STA (14:18)
[2017-11-07] MEDS ORDERED: NITROGLYCERIN SL TABS 0.4 MG TAB SUBLINGUAL PRN ×2 (14:18→18:34)
[2017-11-07] MEDS ORDERED: ALPRAZolam 0.25 MG TAB PO PRN (14:18)
[2017-11-07] MEDS ORDERED: ASPIRIN 325 MG TAB PO STA (14:18)
[2017-11-07] MEDS ORDERED: SODIUM CHLORIDE 0.9% 1,000 ML in EMPTY BAG 1 BAG IV ONE (14:18)
[2017-11-07] MEDS ORDERED: MIDAZOLAM 2 MG/2 ML VIAL ONE (16:49)
[2017-11-07] MEDS ORDERED: fentaNYL (PF) 50 MCG/ML 2 ML AMP ONE (16:49)
[2017-11-07] MEDS ORDERED: LIDOCAINE 1% INJ 10MG/ML (20 ML MDV) ONE (16:49)
[2017-11-07] MEDS ORDERED: SODIUM CHLORIDE 0.9% 1,000 ML IV ONE (17:05)
[2017-11-07] MEDS ORDERED: fentaNYL (PF) 50 MCG/ML 2 ML AMP IVP ONE (17:27)
[2017-11-07] MEDS ORDERED: MIDAZOLAM 2 MG/2 ML VIAL IVP ONE (17:28)
[2017-11-07] MEDS ORDERED: LIDOCAINE 2% INJ 20 MG/ML SQ ONE (17:30)
[2017-11-07] MEDS ORDERED: NITROGLYCERIN OINT 1 INCH/GM PACKET TOPICAL ONE ×2 (17:39→17:42)
--- NOTE | 2017-11-07 17:54 | P.CARDCATH ---
Date of Procedure: 11/07/17 Preoperative Diagnosis: Positive stress test and anginal syndrome Postoperative Diagnosis: Critical lesion involving the proximal LAD Procedure(s) Performed: Left heart cath without left ventriculography Description of Procedure: HISTORY: This is a 51-year-old gentleman who was admitted to the hospital with complaints of burning chest pains which are intermittent and mostly happening at rest. His EKGs and cardiac enzymes were negative. He had a stress test which was strongly positive. This was a stress echo showing ischemia in the anteroseptal and apical areas. Patient is advised to have a cardiac catheterization. CONSENT:I have discussed the risks, benefits and alternative therapies for the above-mentioned procedure and for both sedation/analgesia as well as necessary blood product administration, if indicated, as they pertain to this patient. The patient has indicated understanding and acceptance of the risks and procedures discussed. PROCEDURE: Patient was brought to the lab in a fasting state. Patient was given some IV sedation. The right groin is infiltrated with lidocaine and right femoral artery was entered using Seldinger technique. A 6-Martiniquais catheter was left in place and selective coronary arteriography was performed. Patient tolerated the procedure well. Patient was found to have a critical lesion in the proximal LAD and waiting to have stent placement by Dr. Holcomb . Conscious Sedation: Versed 1mg Fentanyl 50 g Duration 15minutes HEMODYNAMICS: The aortic pressure is 150/85. Left ankle end-diastolic pressure is about 5-10. No gradient across the aortic valve SELECTIVE CORONARY ARTERIOGRAPHY:. LEFT MAIN: Short and divides into left anterior descending and left circumflex and is coronary artery. No significant disease THE LEFT ANTERIOR DESCENDING CORONARY ARTERY:. This a good caliber vessel with a 95% proximal disease. Rest of the LAD is free of occlusive disease THE LEFT CIRCUMFLEX AND IS CORONARY ARTERY:. Good caliber vessel giving rise good-sized OM branch and dominant vessel giving rise to PDA. Free of any significant occlusive disease THE RIGHT CORONARY ARTERY:. Nondominant vessel with mild disease proximally LEFT VENTRICULOGRAPHY: Performed FINAL IMPRESSION: Critical lesion involving the proximal LAD PLAN: Stent placement of the LAD to be done by Dr. Holcomb PROGNOSIS: Guarded
[2017-11-07] MEDS ORDERED: BIVALIRUDIN BOLUS 250 MG/50 ML IV ONE (18:12)
[2017-11-07] MEDS ORDERED: BIVALIRUDIN 250 MG in SODIUM CHLORIDE 0.9% 50 ML IV ONE (18:13)
[2017-11-07] MEDS ORDERED: TICAGRELOR 90 MG TAB ONE (18:14)
[2017-11-07] MEDS ORDERED: NITROGLYCERIN 1000MCG/10ML SYRINGE INTRACORON ONE (18:16)
[2017-11-07] MEDS ORDERED: TICAGRELOR 90 MG TAB PO ONE (18:16)
[2017-11-07] MEDS ORDERED: IOPAMIDOL-370 125ML BTL INJ ONE (18:23)
[2017-11-07] MEDS ORDERED: IOPAMIDOL-370 100ML BTL INJ ONE (18:30)
[2017-11-07] MEDS ORDERED: MAG HYDROX/AL HYDROX/SIMETH 30 ML CUP PO PRN (18:34)
[2017-11-07] MEDS ORDERED: ZOLPIDEM 5 MG TAB PO PRN (18:34)
[2017-11-07] MEDS ORDERED: ATROPINE SULFATE 0.1 MG/ML 10ML SYRINGE IV PRN (18:34)
[2017-11-07] MEDS ORDERED: RX INFO: IV CONTRAST WAS GIVEN 1 EACH MISC MISCELLANE PRN (18:34)
[2017-11-07] MEDS ORDERED: SODIUM CHLORIDE 0.9% 1,000 ML IV SCH (18:45)
--- NOTE | 2017-11-07 20:29 | PTCA ---
PERCUTANEOUSTRANS CORORONARY ANGIOGRAPHY DATE OF SERVICE: 11/07/2017 PERFORMING PHYSICIAN: Swapnil Jones MD, steel tester. PROCEDURE PERFORMED: Successful stenting of the ostial/proximal left anterior descending artery using 3.0 x 15 mm Xience drug-eluting stent with good angiographic results. INDICATION: This is a pleasant 51-year-old gentleman with significant history of smoking who presented to the hospital with chest discomfort and was ruled out for acute coronary event. He underwent a stress echocardiogram that showed anterior ischemia. Subsequently he underwent heart catheterization by Dr. Rebolledo and was found to have critical disease involving the ostial LAD. The decision was made for percutaneous coronary intervention. APPROACH: Right common femoral artery. COMPLICATIONS: None. LEVEL OF SEDATION: Moderate with sedation length of 20 minutes. PROCEDURE DESCRIPTION: After diagnostic heart catheterization was performed by Dr. Rebolledo and after reviewing the angiogram, we decided to pursue intervention on the LAD. Anticoagulation was initiated using Angiomax. Subsequently I engaged the left main using a JL short- tipped guide. A Whisper wire was used to wire the LAD. I did direct stenting on the lesion using a 3.0 x 15 mm Xience LINDA where the stent was positioned under fluoroscopy guidance and deployed under 14 atmospheres for 20 seconds. The following angiogram showed good angiographic results with reduction of stenosis from 90% to 0%. The procedure was completed without any complication. POST-PROCEDURE MANAGEMENT: 1. Dual anti-platelet therapy. 2. Risk factor modifications. 3. Follow up with the patient. MMODL / IJN: [id number] /
--- NOTE | 2017-11-07 21:23 | PN ---
PROGRESS NOTE DATE OF SERVICE: November 07, 2017. I came to see the patient twice today. The patient has not come back from the label drier. MMODL / IJN: [id number] /
--- NOTE | 2017-11-07 22:05 | LTR ---
November 07, 2017 To: Dr. Anne Re: Calixto Buitrago (69) Dear Dr. Anne, Mr. Calixto Buitrago presented to [facility] with chest discomfort and underwent a stress test that revealed anterior ischemia. Heart catheterization was performed by Dr. Rebolledo and the patient was found to have critical disease involving the ostial/proximal LAD. He underwent successful stenting of the LAD with good angiographic results. Thank you for allowing us to participate in his care. Please do not hesitate to call if you have any questions or concern. Sincerely, Swapnil Jones MD MMODL / SYLVIAN: [id number] /
[2017-11-08] MEDS ORDERED: TICAGRELOR 90 MG TAB PO SCH (06:00)
[2017-11-08] MEDS ORDERED: MORPHINE ORAL SOLN 10 MG/5 ML CUP PO PRN (06:09)
[2017-11-08 06:30] LABS: Basophils # (A) 0.1 k/uL (0-0.2); Basophils % (A) 1 %; Eosinophils # (A) 0.2 k/uL (0-0.7); Eosinophils % (A) 2 %; HCT 41.1 % (39.0-53.0); HGB 13.2 gm/dL (13.0-17.5); Lymphocytes # (A) 1.6 k/uL (1.0-4.8); Lymphocytes % (A) 19 %; MCH 31.3 pg (25.0-35.0); MCHC 32.1 g/dL (31.0-37.0); MCV 97.7 fL (80.0-100.0); Mean Platelet Volume 7.9; Monocytes # (A) 0.4 k/uL (0-1.0); Monocytes % (A) 5 %; Neutrophils # (A) 5.8 k/uL (1.3-7.7); Neutrophils % (A) 71 %; Platelet Count 132 k/uL (150-450); RBC 4.21 m/uL (4.30-5.90); WBC 8.2 k/uL (3.8-10.6)
[2017-11-08] MEDS: PANTOPRAZOLE 40 MG TABLET PO SCH (06:58)
[2017-11-08] MEDS: METOPROLOL TARTRATE 25 MG TAB PO SCH (08:51)
[2017-11-08] MEDS: NICOTINE 21MG/24HR PATCH TRANSDERM SCH (08:52)
[2017-11-08] MEDS: ATORVASTATIN 40 MG TAB PO SCH (08:52)
[2017-11-08] MEDS: LOSARTAN 25 MG TAB PO SCH (08:52)
[2017-11-08 08:59] VITALS: PULSE 72; RESP 16
[2017-11-08] MEDS ORDERED: ASPIRIN 81 MG PO SCH (09:00)
[2017-11-08 11:04] VITALS: BMI 31.6
--- NOTE | 2017-11-08 13:57 | P.PN ---
Subjective Progress Note Date: 11/08/17 This is a pleasant 51-year-old gentleman with no prior documented history of hypertension, no diabetes, no hyperlipidemia, he does smoke a pack of cigarettes per day, and drinks beer a few times a week, 10 or more at a time. No family history of premature coronary artery disease. He does not follow regularly with the physician. He presents to the hospital on this occasion with symptoms of chest discomfort. According to the patient for the past 2 weeks she's been experiencing symptoms which originally started in his upper abdominal area he described it as a heavy feeling, burning sensation almost like heartburn. Over the past couple of days, the symptoms have been more so in the upper chest region, described as a burning sensation with pressure and heaviness, he becomes very diaphoretic. He also feels discomfort in his left shoulder and arm area when this occurs. Symptoms occur with or without rest, most of the time she states it seems to be when he is in bed. His EKG on arrival here shows a normal sinus rhythm with nonspecific ST-T wave changes noted. No morning EKG performed. Chest x-ray did not reveal any acute cardiopulmonary process. CTA of the chest revealed mild subsegmental atelectasis at the lung bases, no evidence of pulmonary embolism, nonspecific mediastinal peritracheal lymph node noted. Blood pressure on arrival to the emergency room 196/106 with a heart rate in the 90s, 99% on room air. Blood pressure this morning 180/90 with a heart rate in the 70s, 98% on room air. White blood cell count 6.4, hemoglobin 13.4, platelet count 127. D-dimer 0.6. Sodium 139, potassium 4.4, BUN 18, creatinine 0.6, magnesium 2.1. CK 238 and 176, MB 3.5 and 3.1, troponin 0.017, 0.031. BNP normal. The time of my examination this morning patient is currently chest pain-free. He is currently on IV heparin along with aspirin, he received a one-time dose of Lopressor in the emergency room. 11/07/2017 Patient seen and examined this morning, denies any chest pain at present. He was seen by GI service who felt that the bright red bleeding he had yesterday was secondary to hemorrhoids. As an outpatient able to perform a screening colonoscopy in December. He has had no further episodes of bright red bleeding. Was recommended by Dr. Rebolledo to undergo a stress echocardiographic study today. He had an echocardiogram with Doppler study performed which revealed a normal left ventricular systolic function. Blood pressure 138/80 with a heart rate in the 70s, 97% on room air. White blood cell count 5.8, hemoglobin 13.8, platelet count 145. 11/08/2017 Patient underwent a stress echocardiographic study which was strongly positive in the anterior wall distribution. Patient was taken to the cardiac catheterization lab yesterday where he underwent angioplasty and stenting of proximal LAD. He was seen and examined this morning, denies any heartburn or chest discomfort. EKG shows a normal sinus rhythm with no changes from post- PCI. Hemodynamically stable. White blood cell count 8.2, hemoglobin 13.2, platelet count 132. Objective - Vital Signs Vital signs: Vital Signs Temp 98.2 F 11/08/17 08:54 Pulse 72 11/08/17 11:24 Resp 16 11/08/17 11:24 BP 144/85 11/08/17 11:24 Pulse Ox 98 11/08/17 11:24 Intake & Output 11/07/17 11/08/17 11/08/17 18:59 06:59 18:59 Intake Total 554.36 1960 180 Output Total 250 2 Balance 554.36 1710 178 Weight 100 kg 100 kg Intake: IV 307 Intake, IV Titration 247.36 1000 Amount Heparin Sod,Pork in 0.45% 87.36 NaCl 25,000 unit In 0.45 % NaCl 1 500ml.bag @ 20 mls/hr IV .Q24H [facility] Rx#: [id number] Sodium Chloride 0.9% 1, 1000 000 ml @ 100 mls/hr IV . Q10H [facility] Rx#:[id number] Sodium Chloride 0.9% 1, 60 000 ml @ 20 mls/hr IV . Q24H [facility] Rx#:[id number] Sodium Chloride 0.9% 1, 100 000 ml In Empty Bag 1 bag @ 1 ML/KG/HR 100 mls/hr IV .Q10H [facility] Rx#: [id number] Oral 960 180 Output: Urine 250 2 Other: Voiding Method Toilet Toilet - Exam PHYSICAL EXAMINATION: GENERAL: 51-year-old gentleman in no acute distress at the time of my examination HEENT: Head is atraumatic, normocephalic. Pupils equal, round. Sclera anicteric. Conjunctiva are clear. Mucous membranes of the mouth are moist. Neck is supple. There is no elevated jugular venous pressure. No carotid bruit is heard. HEART EXAMINATION: Heart S1, S2 normal. No murmur or gallop heard. CHEST EXAMINATION: Lungs are clear to auscultation and precussion. No chest wall tenderness is noted on palpation or with deep breathing. ABDOMEN: Soft, nontender. Bowel sounds are heard. No organomegaly noted. EXTREMITIES: 2+ peripheral pulses with no evidence of peripheral edema and no calf tenderness noted. Right groin soft, no evidence of any hematoma. NEUROLOGIC patient is awake, alert and oriented X3. . - Labs CBC & Chem 7: 11/08/17 06:07 11/08/17 06:07 Labs: Abnormal Lab Results - Last 24 Hours (Table) 11/08/17 Range/Units 06:07 RBC 4.21 L (4.30-5.90) m/uL Plt Count 132 L (150-450) k/uL Assessment and Plan Plan: Assessment and plan #1 symptoms of chest pressure and heaviness with associated burning sensation, radiation to the left arm, associated diaphoresis. Initially presenting as epigastric discomfort. EKG shows a normal sinus rhythm with nonspecific ST-T wave changes. CT of the chest negative for pulmonary embolism. Troponin 0.017 , 0.031, 0.026. #2 accelerated hypertension #3 nicotine dependence #4 EtOH use Plan Patient underwent a stress echocardiographic study which was strongly positive in the anterior wall distribution, subsequent to that he was taken to the cardiac catheterization lab where he underwent angioplasty and stenting of a proximal LAD lesion. From cardiology's perspective, he may be able to be discharged home today. He will be discharged home on Ecotrin 81 mg daily, Lipitor 80 mg daily, losartan 25 mg daily, metoprolol 25 mg one tablet by mouth twice a day, Brilinta 90 mg twice a day which she will take for a total of 6 weeks, then the patient will be put on Plavix by Dr. Rebolledo in the office. Patient will also be given a prescription for sublingual nitroglycerin and a nicotine patch. He has been educated regarding the importance of taking his medications regularly as well as nicotine cessation. DNP note has been reviewed, I agree with a documented findings and plan of care. Patient was seen and examined.
[2017-11-08 16:32] VITALS: BP 169/82; TEMP 97.7
--- NOTE | 2017-11-09 07:01 | DS ---
DISCHARGE SUMMARY DATE OF ADMISSION: 11/05/2017 DATE OF DISCHARGE: 11/08/2017 FINAL DIAGNOSES: 1. Unstable angina revealing coronary artery disease with successful angioplasty and stent to the left anterior descending artery. 2. Intravenous heparin monitoring. 3. Acute lower gastrointestinal bleed, probably hemorrhoidal. 4. Obesity; body mass index 32.9. 5. Chronic alcohol dependence. 6. Chronic nicotine dependence, patient is a cigarette smoker. 7. Accelerated hypertension. HOSPITAL COURSE: This patient presented with cardiac sounding presentation and a very subtle rise of troponin. The 2-D echo showed an EF of 55% to 60%. The patient did undergo a stress echocardiogram that did show inducible ischemia. The patient did undergo cardiac catheterization and stent to the LAD by Dr. Jones, drug-eluting stent. Today, day of discharge, patient up and about. No chest pain or shortness of breath. The patient is advised against alcohol. Patient's LDL was 61. CONSULTATION: 1. Dr. Chavez from GI who felt the patient had hemorrhoidal bleed. 2. Dr. Rebolledo from Cardiology. 3. Dr. Jones, Intervention Cardiology. PHYSICAL EXAMINATION: On examination, afebrile. Pulse 56, blood pressure 169/82, pulse ox 98% on room air. LUNGS: Fair entry. CARDIOVASCULAR: First and second sounds normal. DISCHARGE MEDICATIONS: 1. Aspirin 81 mg a day. 2. Lipitor 40 mg a day. 3. Pepcid 20 mg b.i.d. 4. Cozaar 25 mg a day. 5. Lopressor 25 mg b.i.d. 6. Nicotine patch 21. 7. Nitrostat 0.4 sublingual q.5 p.r.n. 8. Brilinta 90 mg p.o. b.i.d. Follow with Kim Jackson on 11/15/2017; Dr. Anne in 3 days; Dr. Thomas Chavez on 12/01/2017. Other cardiac instructions per Cardiology. MMODL / IJN: [id number] /
== END 2017-11-08 18:38 | disposition home or self-care (01) | DRG 247 ==
LOC: EC 21:04 → 6SEL 23:35
PROVIDERS: ADMIT Hospitalist; ATTEND Hospitalist
PROC: B211YZZ Fluoroscopy of Multiple Coronary Arteries using Other Contrast (ICD-10-PCS; 2017-11-07)
PROC: 027034Z Dilation of Coronary Artery, One Artery with Drug-eluting Intraluminal Device, Percutaneous Approach (ICD-10-PCS; principal; 2017-11-07 16:55)
PROC: 4A023N7 Measurement of Cardiac Sampling and Pressure, Left Heart, Percutaneous Approach (ICD-10-PCS; 2017-11-07 16:55)
DX: I25.110 Atherosclerotic heart disease of native coronary artery with unstable angina pectoris (principal); J98.11 Atelectasis; E66.9 Obesity, unspecified; F10.20 Alcohol dependence, uncomplicated; I10 Essential (primary) hypertension; K64.9 Unspecified hemorrhoids; R59.1 Generalized enlarged lymph nodes; Z68.32 Body mass index [BMI] 32.0-32.9, adult; F17.210 Nicotine dependence, cigarettes, uncomplicated; Z71.6 Tobacco abuse counseling; Z79.82 Long term (current) use of aspirin; Z82.49 Family history of ischemic heart disease and other diseases of the circulatory system; Z82.3 Family history of stroke; Z83.3 Family history of diabetes mellitus
CPT/HCPCS: 36415; 71046; 71275; 80053; 80061; 82550; 82553; 82565; 83690; 83735; 83880; 84484; 85025; 85379; 85610; 85730; 93005; 93306; 93351; 93458; 96365; 96376; 99291

== ENCOUNTER → 2017-12-19 | Outpatient (CLI) | payer SELFPAY ==
[2017-12-19 14:47] LABS: Albumin 4.4 g/dL (3.5-5.0); Bilirubin, Delta 0.2 mg/dL (0.0-0.2); Bilirubin,Unconjugated 0.2 mg/dL (0.0-1.1); Total Bilirubin 0.4 mg/dL (0.2-1.3); Total Protein 6.9 g/dL (6.3-8.2)
== END ==
LOC: LABWHC1 14:11
PROVIDERS: ATTEND Internal Medicine Cardiovascular Disease
DX: I25.10 Atherosclerotic heart disease of native coronary artery without angina pectoris (principal); E78.5 Hyperlipidemia, unspecified
CPT/HCPCS: 36415; 80061; 80076

== ENCOUNTER 2021-02-08 11:19 | Emergency (ER) | payer OTHER ==
[2021-02-08 13:12] VITALS: RESP 16
--- NOTE | 2021-02-08 15:11 | ED ---
URI HPI - General Chief Complaint: Upper Respiratory Infection Stated Complaint: Sinus infection Time Seen by Provider: 02/08/21 15:08 Source: patient, RN notes reviewed Mode of arrival: ambulatory Limitations: no limitations - History of Present Illness Initial Comments: Is a 55-year-old male that presents to the emergency department complaining of upper respiratory tract symptoms. Covid test before he can return to work. Patient otherwise well-appearing. He denied any symptoms at this time. He denied any chest pain first breath headache nausea vomiting diarrhea constipation fever fatigue chills. - Related Data Previous Rx's Medication Instructions Recorded Aspirin 81 mg PO DAILY #30 chew 11/08/17 Atorvastatin [Lipitor] 40 mg PO DAILY #30 tab 11/08/17 Famotidine [Pepcid] 20 mg PO BID #60 tablet 11/08/17 Losartan [Cozaar] 25 mg PO DAILY #30 tab 11/08/17 Metoprolol Tartrate [Lopressor] 25 mg PO BID #60 tab 11/08/17 Nicotine 21Mg/24Hr Patch [Habitrol] 1 patch TRANSDERM DAILY #30 patch 11/08/17 Nitroglycerin Sl Tabs [Nitrostat] 0.4 mg SUBLINGUAL Q5M PRN #25 tab 11/08/17 Ticagrelor [Brilinta] 90 mg PO BID #80 tab 11/08/17 Allergies Allergy/AdvReac Type Severity Reaction Status Date / Time No Known Allergies Allergy Verified 02/08/21 13:12 Review of Systems ROS Statement: Those systems with pertinent positive or pertinent negative responses have been documented in the HPI. ROS Other: All systems not noted in ROS Statement are negative. Past Medical History Past Medical History: No Reported History History of Any Multi-Drug Resistant Organisms: None Reported Past Surgical History: No Surgical Hx Reported Past Anesthesia/Blood Transfusion Reactions: No Reported Reaction Past Psychological History: No Psychological Hx Reported Smoking Status: Current every day smoker Past Alcohol Use History: Occasional Past Drug Use History: Marijuana - Past Family History Father Family Medical History: Congestive Heart Failure (CHF), CVA/TIA, Myocardial Infarction ([place]), Vascular Disorder Mother Family Medical History: Diabetes Mellitus General Exam Limitations: no limitations General appearance: alert, in no apparent distress, obese Head exam: Present: atraumatic, normocephalic, normal inspection Eye exam: Present: normal appearance, PERRL, EOMI. Absent: scleral icterus, conjunctival injection, periorbital swelling ENT exam: Present: normal exam, mucous membranes moist Neck exam: Present: normal inspection Respiratory exam: Present: normal lung sounds bilaterally. Absent: respiratory distress, wheezes, rales, rhonchi, stridor Cardiovascular Exam: Present: regular rate, normal rhythm, normal heart sounds. Absent: systolic murmur, diastolic murmur, rubs, gallop, clicks Extremities exam: Present: normal inspection, full ROM, normal capillary refill. Absent: tenderness, pedal edema, joint swelling, calf tenderness Neurological exam: Present: alert, oriented X3 Psychiatric exam: Present: normal affect, normal mood Skin exam: Present: warm, dry, intact, normal color. Absent: rash Course Vital Signs 02/08/21 13:10 Temperature 98.3 F Pulse Rate 81 Respiratory 16 Rate Blood Pressure 173/98 O2 Sat by Pulse 99 Oximetry Medical Decision Making - Medical Decision Making 35-year-old male needing a Covid test returned to work due to sinus pressure. Covid test ordered. Covid test negative. Case discussed with Dr. Medina, patient can discharge home. - Lab Data Lab Results 02/08/21 Range/Units 13:15 Coronavirus (PCR) Not Detected (Not Detectd) Disposition Clinical Impression: Encounter for screening for COVID-19 Disposition: HOME SELF-CARE Condition: Stable Additional Instructions: Please return to the Emergency Department if symptoms worsen or any other concerns. Is patient prescribed a controlled substance at d/c from ED?: No Referrals: None,Stated [Primary Care Provider] - 1-2 days Time of Disposition: 15:10
[2021-02-08 15:46] VITALS: BP 128/78; PULSE 78; TEMP 98.5
== END 2021-02-08 15:45 | disposition home or self-care (01) ==
LOC: EC 11:19
DX: F17.200 Nicotine dependence, unspecified, uncomplicated (principal); Z20.822 Contact with and (suspected) exposure to COVID-19
CPT/HCPCS: 87635; 99283